=== PATIENT | male | born 1970 | race Caucasian/White ===

== ENCOUNTER 2018-06-28 15:31 | Emergency (ER) | payer OTHER ==
[~2018-06-28] VITALS: Ht 177.8 cm; Wt 136.1 kg
--- NOTE | 2018-06-28 15:45 | NUR ---
48M/ BIB EMS, PATIENT WAS FOUND WALKING AROUND [facility], MUMBLING TO SELF. PATIENT IS ALTERED, PATIENT IS AWAKE, DOES NOT ANSWER QUESTIONS WHEN ASKED, UNCCOPERATIVE. PATIENT DENIES ANY ETOH OR DRUG USE, SPEECH IS CLEAR, PATIENT NOT ABLE TO AMBULATE, 4 POINT RESTRAINTS APPLIED.AGGITATED, SWINGING ARMS POSSIBLE INJURY TO STAFF [facility] SECURITY STAFF AT BEDSIDE OK TO CONTINUE PER DR. JUDGE. BREATHING IS NOT LABORED, PATIENT KEEPS STATING, "LET ME HELP YOU." PIN PINT PUPILS, BG [phone].
--- NOTE | 2018-06-28 16:00 | NUR ---
PATIENT IN 4 POINT RESTRAINT, <3 SEC CAP REFILL, NO APPRENT INJURY TO RESTRAINTS, OFFERED PATIENT WATER AND IF HE WANTED TO GO TO THE BATHROOM.
[2018-06-28] MEDS ORDERED: NACL 0.9% 1,000 ML IV ONE ×2 (16:03→19:05)
[2018-06-28] MEDS ORDERED: NALOXONE PFS 2 MG/2 ML SYR IVP ONE (16:05)
--- NOTE | 2018-06-28 16:20 | NUR ---
PATIENT CONFUSED AND ALTERED, UNCOOPERATIVE, REMAINS IN RESTRAINTS. <3 SEC CAP REFILL, COLOR APPROPRIATE TO ETHNICITY, NO TRUMA OR INJURY, POSITIVE PULSES.
[2018-06-28 16:33] LABS: BASOPHILS % (AUTO) 0.3 % (0.0-2.0); EOSINOPHILS # (AUTO) 0.1 K/uL (0-0.4); EOSINOPHILS % (AUTO) 0.6 % (0.0-4.0); HEMATOCRIT 50.5 % (36-52); HEMOGLOBIN 16.5 g/dL (12.0-18.0); LYMPHOCYTES # (AUTO) 2.4 K/uL (2.0-11.5); LYMPHOCYTES % (AUTO) 24.8 % (20.5-51.1); MEAN CORPUSCULAR HEMOGLOBIN 29 pg (27-31); MEAN CORPUSCULAR HGB CONC 33 g/dL (33-37); MEAN CORPUSCULAR VOLUME 88.3 fL (80-94); MONOCYTES # (AUTO) 0.8 K/uL (0.8-1.0); MONOCYTES % (AUTO) 8.5 % (1.7-9.3); NEUTROPHILS # (AUTO) 6.4 K/uL (1.8-7.7); NEUTROPHILS % (AUTO) 65.8 % (42.2-75.2); PLATELET COUNT (AUTO) 218 K/uL (140-450); RED BLOOD CELL COUNT(AUTO) 5.72 MIL/uL (4.20-6.10); RED CELL DISTRIBUTION WIDTH 16.2 % (11.6-13.7); WHITE BLOOD COUNT (AUTO) 9.8 K/uL (4.8-10.8)
--- NOTE | 2018-06-28 16:35 | NUR ---
PATIENT CONFUSED AND ALTERED, UNCOOPERATIVE, REMAINS IN RESTRAINTS. <3 SEC CAP REFILL, COLOR APPROPRIATE TO ETHNICITY, NO TRUMA OR INJURY, POSITIVE PULSES.
[2018-06-28] MEDS ORDERED: LORazepam 2 MG/ML VIAL IVP ONE (16:45)
[2018-06-28] MEDS ORDERED: ALBUTEROL SULFATE/IPRATROPIU 3 ML SOL IH ONE (16:45)
[2018-06-28 16:48] LABS: ANION GAP 14.5 (8-16); CARBON DIOXIDE 26.9 mmol/L (21-32); CHLORIDE 106 mmol/L (98-107); CREATININE 1.1 mg/dL (0.7-1.3); GFR ARICAN-AMERICAN 92 mL/min (>90); GLUCOSE 106 mg/dL (74-106); POTASSIUM 4.4 mmol/L (3.5-5.1); SODIUM SERUM 143 mmol/L (136-145); UREA NITROGEN, BLOOD 15 mg/dL (7-18)
--- NOTE | 2018-06-28 16:50 | NUR ---
PATIENT CONFUSED AND ALTERED, UNCOOPERATIVE, REMAINS IN RESTRAINTS. <3 SEC CAP REFILL, COLOR APPROPRIATE TO ETHNICITY, NO TRUMA OR INJURY, POSITIVE PULSES.
[2018-06-28 16:55] LABS: AMYLASE 39 U/L (25-115); ASPARTATE AMINOTRANSFERASE 17 U/L (15-37); LIPASE 190 U/L (73-393); SALICYLATE 5.1 mg/dL (2.8-20.0); TOTAL BILIRUBIN 0.2 mg/dL (0.0-1.0)
--- NOTE | 2018-06-28 17:00 | NUR ---
RT AT BEDSIDE FOR INTERVENTION
--- NOTE | 2018-06-28 17:05 | NUR ---
PATIENT CONFUSED AND ALTERED, UNCOOPERATIVE, REMAINS IN RESTRAINTS. <3 SEC CAP REFILL, COLOR APPROPRIATE TO ETHNICITY, NO TRUMA OR INJURY, POSITIVE PULSES.
[2018-06-28 17:07] LABS: PROTHROMBIN TIME 9.2 secs (10.8-13.4)
--- NOTE | 2018-06-28 17:12 | NUR ---
XRAY AT BEDSIDE FOR INTERVENTION.
--- NOTE | 2018-06-28 17:20 | NUR ---
PATIENT SLEEPING, REMAINS IN RESTRAINTS. <3 SEC CAP REFILL, COLOR APPROPRIATE TO ETHNICITY, NO TRUMA OR INJURY, POSITIVE PULSES.
[2018-06-28 17:36] LABS: ACETAMINOPHEN < 0.5 ug/ml (10-30); ALBUMIN 3.7 g/dL (3.4-5.0)
--- NOTE | 2018-06-28 17:36 | NUR ---
PATIENT SLEEPING, REMAINS IN RESTRAINTS. <3 SEC CAP REFILL, COLOR APPROPRIATE TO ETHNICITY, NO TRUMA OR INJURY, POSITIVE PULSES.
--- NOTE | 2018-06-28 17:50 | NUR ---
PATIENT SLEEPING, REMAINS IN RESTRAINTS. <3 SEC CAP REFILL, COLOR APPROPRIATE TO ETHNICITY, NO TRUMA OR INJURY, POSITIVE PULSES.
[2018-06-28 17:53] LABS: BARBITURATE, URINE NEG. ng/ml (NEG <=200); BENZODIAZEPINE, URINE NEG. ng/mL (NEG <=200); CANNABINOID, URINE NEG. ng/mL (NEG <=50); COCAINE, URINE NEG. ng/mL (NEG <=300); OPIATE, URINE NEG. ng/mL (NEG <=2000); PHENCYCLIDINE SCREEN,URINE NEG. ng/mL (NEG <=25)
--- NOTE | 2018-06-28 18:00 | NUR ---
PATIENT NO LONGER ON RESTRAINTS, AOX4, CLEAR SPEECH, PATIENT IS COOPERATIVE FOLLOWING COMMANDS. AT BEDSIDE. PATIENT WANTS TO AMBULATE TO THE RESTROOM.
[2018-06-28 18:05] LABS: APPEARANCE,URINE CLEAR (CLEAR); BILIRUBIN,URINE NEGATIVE (NEGATIVE); BLOOD, URINE NEGATIVE (NEGATIVE); COLOR,URINE YELLOW (YELLOW); LEUKOCYTE ESTERASE ,URINE NEGATIVE (NEGATIVE); NITRITE, URINE NEGATIVE (NEGATIVE); UGLUCOSE NEGATIVE (NEGATIVE)
[2018-06-28] MEDS ORDERED: THIAMINE 200 MG/2 ML VIAL IM ONE (18:15)
[2018-06-28] MEDS ORDERED: BUS5 PO (18:38)
[2018-06-28] MEDS ORDERED: LAM200 PO (18:38)
[2018-06-28] MEDS ORDERED: VITA20002 PO (18:38)
[2018-06-28] MEDS ORDERED: LURA40TA PO (18:38)
[2018-06-28] MEDS ORDERED: ATA25 PO (18:38)
[2018-06-28] MEDS ORDERED: DULO60EC PO (18:38)
[2018-06-28] MEDS ORDERED: diphenhydrAMINE 50 MG/ML VIAL IVP ONE (19:00)
--- NOTE | 2018-06-28 19:15 | NUR ---
PT AWAKE AND ACTING APPROPRIATE AT THIS TIME, STATES "I FEEL GREAT", AT BEDSIDE.
--- NOTE | 2018-06-28 19:24 | NUR ---
PT AMBULATED TO ER BATHROOM EVEN STEADY GAIT NO ASSISTANCE.
--- NOTE | 2018-06-28 19:26 | NUR ---
PT DRESSED HIMSELF NO ASSISTANCE.
[2018-06-28 19:37] VITALS: BP 112/67
--- NOTE | 2018-06-28 19:37 | NUR ---
Patient discharged with v/s stable. Written and verbal after care instructions given and explained. Patient verbalized understanding. Ambulatory with steady gait. All questions addressed prior to discharge. Advised to follow up with PMD. PT GOING HOME W/
== END 2018-06-28 19:37 | disposition home or self-care (01) ==
LOC: MED 15:31
DX: F10.229 Alcohol dependence with intoxication, unspecified (principal); F20.9 Schizophrenia, unspecified; E66.01 Morbid (severe) obesity due to excess calories; Z79.899 Other long term (current) drug therapy
CPT/HCPCS: 36415; 71045; 80053; 80305; 81003; 82150; 82550; 83690; 84484; 85025; 85610; 85730; 93005; 94640; 96361; 96374; 96375; 99284; G0480; G0482; J2060; J2310; J3411; J7030; J7620; J1200